=== PATIENT | male | born 1930 | race Caucasian/White ===

== ENCOUNTER 2018-03-15 17:45 | Outpatient (CLI) | payer MEDICARE, BC | END 2018-03-15 17:46 | disposition short-term general hospital (02) | LOC: EMS 17:45 | PROVIDERS: ATTEND Surgery | DX: R42 Dizziness and giddiness (principal); S61.412A Laceration without foreign body of left hand, initial encounter; W01.0XXA Fall on same level from slipping, tripping and stumbling without subsequent striking against object, initial encounter; Y93.01 Activity, walking, marching and hiking; Y92.524 Gas station as the place of occurrence of the external cause | CPT/HCPCS: A0425; A0427; A0888 ==